=== PATIENT | female | born 1985 ===

== ENCOUNTER 2017-06-17 02:19 | Inpatient (IN) | payer OTHER ==
[2017-06-17] MEDS ORDERED: Sodium Chloride 0.9% 1,000 ML IV STA ×2 (02:28→03:15)
[2017-06-17 02:56] LABS: BASO # 0.1 K/uL (0.0-0.2); BASO % 0.8 % (0.0-2.0); EOS # 0.2 K/uL (0.0-0.7); EOS % 2.5 % (0.0-4.0); HEMOGLOBIN 12.9 g/dL (12.0-16.0); LYMPH % 21.2 % (20.0-40.0); MEAN CELL VOLUME 80.8 fl (81.0-99.0); MEAN CORPUSCULAR HEMOGLOBIN 26.8 pg (27.0-31.0); MEAN CORPUSCULAR HGB CONC 33.1 g/dL (33.0-37.0); MEAN PLATELET VOLUME 9.4 fl (7.2-11.7); MONO # 0.6 K/uL (0.0-0.8); MONO % 6.6 % (0.0-10.0); NEUT # 6.6 K/uL (1.8-7.0); NEUT % 68.9 % (50.0-75.0); NRBC % 0.2 % (0.0-0.0); RBC 4.81 Mil/uL (3.80-5.20); RED CELL DISTRIBUTION WIDTH 15.1 % (11.5-14.5); WHITE BLOOD COUNT 9.6 K/uL (4.8-10.8)
--- NOTE | 2017-06-17 02:57 | ED PDOC ---
HPI: Psych/Substance Abuse Time Seen by Provider: 06/17/17 02:26 Chief Complaint (Nursing): Psychiatric Evaluation Chief Complaint (Provider): Overdose ED Caveat: Acuity of Condition History Per: Patient History/Exam Limitations: no limitations Onset/Duration Of Symptoms: Hrs (1) Current Symptoms Are (Timing): Still Present Additional Complaint(s): 31 yo [place] female, brought in by roommates, presents to the ED status post ingesting 50 tablets of Benadryl (25mg), onset of 1 hour prior to arrival. History was obtained from the roommates because the patient is unable to answer any questions due to her clinical condition. Patient self reported the incident as a suicidal attempt to her roommates, and the patient has not vomited yet. The roommates have been unaware of any recent stressors and have not noted any changes in the patient's personality, mood, or behaviours. Of note, just prior to the incident the patient was on the phone with family, who reside oversees. Past Medical History Reviewed: Historical Data, Nursing Documentation, Vital Signs Vital Signs: Last Vital Signs Temp 98.2 F 06/17/17 02:27 Pulse 118 H 06/17/17 02:27 Resp 16 06/17/17 02:27 BP 127/84 06/17/17 02:27 Pulse Ox 100 06/17/17 02:27 - Medical History PMH: No Chronic Diseases - Surgical History Surgical History: No Surg Hx - Family History Family History: States: Unknown Family Hx - Social History Current smoker - smoking cessation education provided: No Ex-Smoker (has not smoked in the last 12 months): No Alcohol: None Drugs: Denies - Home Medications Home Medications: Ambulatory Orders Medication Instructions Recorded No Known Home Med 06/17/17 - Allergies Allergies/Adverse Reactions: Allergies Allergy/AdvReac Type Severity Reaction Status Date / Time No Known Allergies Allergy Verified 06/17/17 02:27 Review of Systems ROS Statement: Except As Marked, All Systems Reviewed And Found Negative Review Of Systems: ROS cannot be obtained secondary to pt's inabilty to answer questions. Psych: Positive for: Depression, Suicidal ideation Physical Exam - Reviewed Nursing Documentation Reviewed: Yes Vital Signs Reviewed: Yes - Physical Exam Appears: Positive for: Well Head Exam: Positive for: ATRAUMATIC, NORMAL INSPECTION, NORMOCEPHALIC Skin: Positive for: Normal Color, Warm, DRY Eye Exam: Positive for: EOMI, Normal appearance, PERRL ENT: Positive for: Normal ENT Inspection, Other (mucous membranes are dry) Neck: Positive for: Normal, Painless ROM Cardiovascular/Chest: Positive for: Regular Rate, Rhythm, Tachycardia. Negative for: Murmur Respiratory: Positive for: Normal Breath Sounds. Negative for: Respiratory Distress Gastrointestinal/Abdominal: Positive for: Normal Exam, Soft. Negative for: Tenderness Back: Positive for: Normal Inspection Extremity: Positive for: Normal ROM. Negative for: Pedal Edema, Deformity Neurologic/Psych: Positive for: Alert (patient is somnolent but not arousable) - Laboratory Results Result Diagrams: 06/17/17 02:45 06/17/17 02:45 - ECG O2 Sat by Pulse Oximetry: 100 (RA) Pulse Ox Interpretation: Normal - Critical Care Total Time (In Min): 60 (drug overdose) Medical Decision Making Medical Decision Making: Time: --02:27 Impression: --31 yo female status post benadryl overdose Plan: --ECG --Drug Screen, Urine --Poison Control Consult --Ed urine dip --urine preg --ptt --Prothrombin Time --IV fluids --Heplock Insertion --Accucheck --urinalysis Reassess --03:26 labs reviewed and reveal no clinically significant abnormalities. patient remains somnolent. poison agrees with current management plan. Nielsen catheter order. pat admitted to ICU under dr. Archibald, physician recreation professor, and hospitalist Dr. Tad Braga Attestation: Documented by Ellis Irwin acting as a scribe for Kar Gil MD. Provider Attestation: All medical record entries made by the Scribe were at my direction and personally dictated by me. I have reviewed the chart and agree that the record accurately reflects my personal performance of the history, physical exam, medical decision making, and the department course for this patient. I have also personally directed, reviewed, and agree with the discharge instructions and disposition. Disposition - Clinical Impression Clinical Impression: Diphenhydramine overdose - Patient ED Disposition Is Patient to be Admitted: Yes Discussed With : Sandip Archibald (Dr Duke Mishra) Doctor Will See Patient In The: Hospital - Disposition Disposition Time: 03:26 Condition: GUARDED
[2017-06-17 03:04] LABS: ALB/GLOB RATIO 1.1 (1.0-2.1); ALBUMIN 4.9 g/dL (3.5-5.0); ALT/SGPT 37 U/L (9-52); AST/SGOT 24 U/L (14-36); BLOOD UREA NITROGEN 15 mg/dl (7-17); CALCIUM 9.7 mg/dL (8.4-10.2); GFR AFRICAN-AMERICAN > 60; GFR NON-AFRICAN AMERICAN > 60
[2017-06-17 03:05] LABS: ACETAMINOPHEN < 10.0 ug/ml (10.0-30.0); SALICYLATE < 1.0 mg/dl
[2017-06-17 03:06] LABS: PROTHROMBIN TIME 10.9 Seconds (9.8-13.1)
--- NOTE | 2017-06-17 03:54 | CP.PCM.CON ---
History of Present Illness - History of Present Illness History of Present Illness: PMD: None Reason for Consult: Critical care management Chief Complaint: Overdose on medication The patient was seen and examined in the ED HPI: The hx was obtained from the patient and her room mates. She is a 31 years old female with no significant medical hx, is brought to the ED after she ingested approximately 50 tablets of 25mg Benadryl each, one hour prior to the Arrival in the ED. The patient stated that she has too much stress and worries and so took the tablets. She referred photophobia with blurring of vision and feeling very drowsy. No vomits nor nausea PMH: Denies PSH: Cesarian section X2 SH: No illegal drug use; No Alcohol; No cigarettes;Live with 2 room mates; has 2 children FH: States: Unknown Family Hx Allergies: NKDA Medication: Denies Review of Systems - Review of Systems Review of Systems: review of system is limited because of the patients condition Past Patient History - Past Medical History & Family History Past Medical History?: No - Past Social History Smoking Status: Unknown If Ever Smoked Chewing Tobacco Use: No Cigar Use: No Alcohol: None Drugs: Denies Home Situation {Lives}: Roommate - CARDIAC Hx Cardiac Disorders: No - PULMONARY Hx Respiratory Disorders: No - NEUROLOGICAL Hx Neurological Disorder: No - HEENT Hx HEENT Problems: No - RENAL Hx Chronic Kidney Disease: No - ENDOCRINE/METABOLIC Hx Endocrine Disorders: No - HEMATOLOGICAL/ONCOLOGICAL Hx Blood Disorders: No - INTEGUMENTARY Hx Dermatological Problems: No - MUSCULOSKELETAL/RHEUMATOLOGICAL Hx Musculoskeletal Disorders: No - GASTROINTESTINAL Hx Gastrointestinal Disorders: No - GENITOURINARY/GYNECOLOGICAL Hx Genitourinary Disorders: No - PSYCHIATRIC Hx Psychophysiologic Disorder: No Hx Substance Use: No - SURGICAL HISTORY Hx Surgeries: Yes Hx Section: Yes (X2) - ANESTHESIA Hx Anesthesia: Yes Hx Anesthesia Reactions: No Meds Allergies/Adverse Reactions: Allergies Allergy/AdvReac Type Severity Reaction Status Date / Time No Known Allergies Allergy Verified 06/17/17 02:27 - Medications Medications: Current Medications Sodium Chloride (Sodium Chloride 0.9%) 1,000 mls @ 1,000 mls/hr IV .Q1H STA Stop: 06/17/17 04:14 Physical Exam - Constitutional Appears: No Acute Distress - Head Exam Head Exam: ATRAUMATIC, NORMAL INSPECTION, NORMOCEPHALIC - Eye Exam Eye Exam: EOMI, Normal appearance Pupil Exam: NORMAL ACCOMODATION, PERRL - ENT Exam ENT Exam: Mucous Membranes Moist, Normal Exam - Neck Exam Neck exam: Positive for: Full Rom, Normal Inspection. Negative for: Lymphadenopathy, Tenderness - Respiratory Exam Respiratory Exam: Clear to Auscultation Bilateral. absent: Rales, Rhonchi, Wheezes - Cardiovascular Exam Cardiovascular Exam: REGULAR RHYTHM, RRR, +S1, +S2. absent: Gallop - GI/Abdominal Exam GI & Abdominal Exam: Normal Bowel Sounds, Soft. absent: Mass, Organomegaly, Tenderness - Rectal Exam Rectal Exam: Deferred - Extremities Exam Extremities exam: Positive for: full ROM, normal inspection. Negative for: calf tenderness, pedal edema - Back Exam Back exam: NORMAL INSPECTION. absent: CVA tenderness (L), CVA tenderness (R) - Neurological Exam Neurological exam: Alert, CN II-XII Intact, Oriented x3, Reflexes Normal - Psychiatric Exam Psychiatric exam: Normal Affect, Normal Mood - Skin Skin Exam: Dry, Intact, Normal Color, Warm Results - Vital Signs Recent Vital Signs: Last Vital Signs Temp 98.2 F 06/17/17 02:27 Pulse 118 H 06/17/17 02:27 Resp 16 06/17/17 02:27 BP 127/84 06/17/17 02:27 Pulse Ox 100 06/17/17 03:28 - Labs Result Diagrams: 06/17/17 02:45 06/17/17 02:45 Labs: Laboratory Results - last 24 hr 06/17/17 06/17/17 06/17/17 02:32 02:45 02:45 WBC RBC Hgb Hct MCV MCH MCHC RDW Plt Count MPV Neut % (Auto) Lymph % (Auto) [place] % (Auto) Eos % (Auto) Baso % (Auto) Neut # (Auto) Lymph # (Auto) [place] # (Auto) Eos # (Auto) Baso # (Auto) PT INR APTT Sodium 145 Potassium 3.8 Chloride 99 Carbon Dioxide 25 Anion Gap 25 H BUN 15 Creatinine 0.6 L Est GFR ( Amer) > 60 Est GFR (Non-Af Amer) > 60 POC Glucose (mg/dL) 101 Random Glucose 108 H Calcium 9.7 Magnesium 2.2 Total Bilirubin 0.4 AST 24 ALT 37 Alkaline Phosphatase 61 Total Protein 9.2 H Albumin 4.9 Globulin 4.3 H Albumin/Globulin Ratio 1.1 Salicylates < 1.0 Acetaminophen < 10.0 L Alcohol, Quantitative < 10 06/17/17 06/17/17 02:45 02:45 WBC 9.6 RBC 4.81 Hgb 12.9 Hct 38.9 MCV 80.8 L MCH 26.8 L MCHC 33.1 RDW 15.1 H Plt Count 310 MPV 9.4 Neut % (Auto) 68.9 Lymph % (Auto) 21.2 [place] % (Auto) 6.6 Eos % (Auto) 2.5 Baso % (Auto) 0.8 Neut # (Auto) 6.6 Lymph # (Auto) 2.0 [place] # (Auto) 0.6 Eos # (Auto) 0.2 Baso # (Auto) 0.1 PT 10.9 INR 1.0 APTT 36.0 Sodium Potassium Chloride Carbon Dioxide Anion Gap BUN Creatinine Est GFR ( Amer) Est GFR (Non-Af Amer) POC Glucose (mg/dL) Random Glucose Calcium Magnesium Total Bilirubin AST ALT Alkaline Phosphatase Total Protein Albumin Globulin Albumin/Globulin Ratio Salicylates Acetaminophen Alcohol, Quantitative Assessment & Plan - Assessment and Plan (Free Text) Assessment: #. Diphenyhydranine Overdose #. Suicide Attempt #. Dep Plan: 31 years old female with no significant medical hx, is brought to the ED after she ingested approximately 50 tablets of 25mg Benadryl each, one hour prior to the Arrival in the ED. The patient stated that she has too much stress and worries and so took the tablets. She referred photophobia with blurring of vision and feeling very drowsy. No vomits nor nausea #. Diphenyhydranine Overdose as Suicide Attempt - Consult Dr Ansari Psychiatrist - IV Fluids - Cardiac monitoring - Seizure precaution - Ativan PRN for Seizure #. Depression #. DVT prophylaxis with SCD #. Code Status :Full - - Date & Time Date: 06/17/17 Time: 03:54
[2017-06-17 04:08] LABS: URINE BACTERIA RARE (<OCC); URINE BILIRUBIN NEGATIVE (NEGATIVE); URINE BLOOD NEGATIVE (NEGATIVE); URINE CLARITY CLEAR (Clear); URINE COLOR STRAW (YELLOW); URINE GLUCOSE (UA) NEG (Normal); URINE LEUKOCYTE ESTERASE NEG Leu/uL (Negative); URINE PROTEIN NEGATIVE (NEGATIVE); URINE UROBILINOGEN 0.2-1.0 mg/dL (0.2-1.0)
[2017-06-17 04:26] LABS: BARBITURATES, UR NEGATIVE (NEGATIVE); BENZODIAZEPINES, UR NEGATIVE (NEGATIVE); OPIATES, UR NEGATIVE (NEGATIVE); PHENCYCLIDINE, UR NEGATIVE (NEGATIVE)
[2017-06-17 05:51] VITALS: BMI 24.0
[2017-06-17] MEDS: Dextrose 5%/0.45% NS 1,000 ML IV SCH ×3 (06:41→21:35)
--- NOTE | 2017-06-17 07:38 | CARD ---
APPROVED REPORT EKG Measurement Heart [id number] <Conclusion> Sinus tachycardia Possible Left atrial enlargement Borderline ECG
--- NOTE | 2017-06-17 09:47 | CP.PCM.HP ---
<Romeo Hines - Last Filed: 06/17/17 13:27> History of Present Illness - History of Present Illness History of Present Illness: CC: benadryl overdose HPI: 31 y/o woman w/ no pmh brought in by roommates, presented to the ED status post ingesting multiple tablets of Benadryl (25mg). Patient ingest tablets 1 hour prior to arrival. Patient reports increased depression and suicidal ideation. Patient reports family issues as cause of actions but did not want to discuss matter further. Patient has past history of attempt of OD in past w / pills in 2014. Patient did not receive treatment for previous attempt but was monitored by her who is a physician in [place]. Patient denies family history of psychiatric illness. Patient denies delusions, and auditory/ visual hallucinations. The patient denies headaches, chest pain, SOB, abdominal pain, nausea, vomiting, diarrhea, dysuria, or fever. PMD: None PMH: Denies meds: none Allergies: NKDA PSH: Cesarian section X2 Fam: denies history of psychiatric illness SOC: denies smoking, alcohol, and drugs; lives with 2 room mates; and 2 children live in [place] ROS: 12 points assessed and negative unless otherwise reported in HPI patient seen and examined this morning at bedside w/ Dr. Archibald Present on Admission - Present on Admission Any Indicators Present on Admission: No History of DVT/PE: No History of Uncontrolled Diabetes: No Urinary Catheter: No Decubitus Ulcer Present: No Review of Systems - Review of Systems All systems: reviewed and no additional remarkable complaints except - Constitutional Constitutional: absent: Chills, Fever, Headache - EENT Eyes: absent: Change in Vision - Cardiovascular Cardiovascular: absent: Chest Pain - Respiratory Respiratory: absent: Dyspnea - Gastrointestinal Gastrointestinal: absent: Abdominal Pain, Diarrhea, Nausea, Vomiting - Genitourinary Genitourinary: absent: Dysuria - Integumentary Integumentary: absent: Rash - Psychiatric Psychiatric: As Per HPI Past Patient History - Past Medical History & Family History Past Medical History?: No - Past Social History Alcohol: None Drugs: Denies - CARDIAC Hx Cardiac Disorders: No - PULMONARY Hx Respiratory Disorders: No - NEUROLOGICAL Hx Neurological Disorder: No - HEENT Hx HEENT Problems: No - RENAL Hx Chronic Kidney Disease: No - ENDOCRINE/METABOLIC Hx Endocrine Disorders: No - HEMATOLOGICAL/ONCOLOGICAL Hx Blood Disorders: No - INTEGUMENTARY Hx Dermatological Problems: No - MUSCULOSKELETAL/RHEUMATOLOGICAL Hx Musculoskeletal Disorders: No - GASTROINTESTINAL Hx Gastrointestinal Disorders: No - GENITOURINARY/GYNECOLOGICAL Hx Genitourinary Disorders: No - PSYCHIATRIC Hx Psychophysiologic Disorder: No Hx Substance Use: No - SURGICAL HISTORY Hx Surgeries: Yes Hx Section: Yes (X2) - ANESTHESIA Hx Anesthesia: Yes Hx Anesthesia Reactions: No Meds Allergies/Adverse Reactions: Allergies Allergy/AdvReac Type Severity Reaction Status Date / Time No Known Allergies Allergy Verified 06/17/17 02:27 Physical Exam - Constitutional Appears: Non-toxic, No Acute Distress - Head Exam Head Exam: ATRAUMATIC, NORMAL INSPECTION, NORMOCEPHALIC - Eye Exam Eye Exam: EOMI, Normal appearance, PERRL - ENT Exam ENT Exam: Mucous Membranes Moist - Respiratory Exam Respiratory Exam: Clear to Auscultation Bilateral. absent: Accessory Muscle Use , Decreased Breath Sounds, Rales, Rhonchi, Wheezes, Respiratory Distress - Cardiovascular Exam Cardiovascular Exam: REGULAR RHYTHM. absent: Tachycardia - GI/Abdominal Exam GI & Abdominal Exam: Normal Bowel Sounds, Soft. absent: Distended, Tenderness - Extremities Exam Extremities exam: Negative for: calf tenderness, pedal edema, tenderness - Neurological Exam Neurological exam: Alert, CN II-XII Intact, Oriented x3 - Skin Skin Exam: Dry, Intact, Normal Color, Warm Results - Vital Signs Recent Vital Signs: Last Vital Signs Temp 98.7 F 06/17/17 08:00 Pulse 86 06/17/17 08:00 Resp 32 H 06/17/17 08:00 BP 93/71 L 06/17/17 08:00 Pulse Ox 100 06/17/17 08:00 - Labs Result Diagrams: 06/17/17 02:45 06/17/17 02:45 Labs: Laboratory Results - last 24 hr 06/17/17 06/17/17 06/17/17 02:32 02:45 02:45 WBC RBC Hgb Hct MCV MCH MCHC RDW Plt Count MPV Neut % (Auto) Lymph % (Auto) [place] % (Auto) Eos % (Auto) Baso % (Auto) Neut # (Auto) Lymph # (Auto) [place] # (Auto) Eos # (Auto) Baso # (Auto) PT INR APTT Sodium 145 Potassium 3.8 Chloride 99 Carbon Dioxide 25 Anion Gap 25 H BUN 15 Creatinine 0.6 L Est GFR ( Amer) > 60 Est GFR (Non-Af Amer) > 60 POC Glucose (mg/dL) 101 Random Glucose 108 H Calcium 9.7 Magnesium 2.2 Total Bilirubin 0.4 AST 24 ALT 37 Alkaline Phosphatase 61 Total Protein 9.2 H Albumin 4.9 Globulin 4.3 H Albumin/Globulin Ratio 1.1 Urine Color Urine Clarity Urine pH Ur Specific [place] Urine Protein Urine Glucose (UA) Urine Ketones Urine Blood Urine Nitrate Urine Bilirubin Urine Urobilinogen Ur Leukocyte Esterase Urine RBC (Auto) Urine Bacteria Salicylates < 1.0 Urine Opiates Screen Urine Methadone Screen Acetaminophen < 10.0 L Ur Barbiturates Screen Ur Phencyclidine Scrn Ur Amphetamines Screen U Benzodiazepines Scrn U Oth Cocaine Metabols U Cannabinoids Screen Alcohol, Quantitative < 10 06/17/17 06/17/17 06/17/17 02:45 02:45 03:45 WBC 9.6 RBC 4.81 Hgb 12.9 Hct 38.9 MCV 80.8 L MCH 26.8 L MCHC 33.1 RDW 15.1 H Plt Count 310 MPV 9.4 Neut % (Auto) 68.9 Lymph % (Auto) 21.2 [place] % (Auto) 6.6 Eos % (Auto) 2.5 Baso % (Auto) 0.8 Neut # (Auto) 6.6 Lymph # (Auto) 2.0 [place] # (Auto) 0.6 Eos # (Auto) 0.2 Baso # (Auto) 0.1 PT 10.9 INR 1.0 APTT 36.0 Sodium Potassium Chloride Carbon Dioxide Anion Gap BUN Creatinine Est GFR ( Amer) Est GFR (Non-Af Amer) POC Glucose (mg/dL) Random Glucose Calcium Magnesium Total Bilirubin AST ALT Alkaline Phosphatase Total Protein Albumin Globulin Albumin/Globulin Ratio Urine Color Urine Clarity Urine pH Ur Specific [place] Urine Protein Urine Glucose (UA) Urine Ketones Urine Blood Urine Nitrate Urine Bilirubin Urine Urobilinogen Ur Leukocyte Esterase Urine RBC (Auto) Urine Bacteria Salicylates Urine Opiates Screen Negative Urine Methadone Screen Negative Acetaminophen Ur Barbiturates Screen Negative Ur Phencyclidine Scrn Negative Ur Amphetamines Screen Negative U Benzodiazepines Scrn Negative U Oth Cocaine Metabols Negative U Cannabinoids Screen Negative Alcohol, Quantitative 06/17/17 03:45 WBC RBC Hgb Hct MCV MCH MCHC RDW Plt Count MPV Neut % (Auto) Lymph % (Auto) [place] % (Auto) Eos % (Auto) Baso % (Auto) Neut # (Auto) Lymph # (Auto) [place] # (Auto) Eos # (Auto) Baso # (Auto) PT INR APTT Sodium Potassium Chloride Carbon Dioxide Anion Gap BUN Creatinine Est GFR ( Amer) Est GFR (Non-Af Amer) POC Glucose (mg/dL) Random Glucose Calcium Magnesium Total Bilirubin AST ALT Alkaline Phosphatase Total Protein Albumin Globulin Albumin/Globulin Ratio Urine Color Straw Urine Clarity Clear Urine pH 7.0 Ur Specific [place] 1.005 Urine Protein Negative Urine Glucose (UA) Neg Urine Ketones Negative Urine Blood Negative Urine Nitrate Negative Urine Bilirubin Negative Urine Urobilinogen 0.2-1.0 Ur Leukocyte Esterase Neg Urine RBC (Auto) 1 Urine Bacteria Rare Salicylates Urine Opiates Screen Urine Methadone Screen Acetaminophen Ur Barbiturates Screen Ur Phencyclidine Scrn Ur Amphetamines Screen U Benzodiazepines Scrn U Oth Cocaine Metabols U Cannabinoids Screen Alcohol, Quantitative Assessment & Plan (1) Diphenhydramine overdose Status: Acute (2) Suicidal ideation Status: Acute (3) Depression Status: Acute - Assessment and Plan (Free Text) Plan: c/w present management afebrile, non-tachycardic, normotensive poison control consulted psychiatry recommendations appreciated EKG: sinus tachycardia, possible left atrial enlargement, no acute ST elevation/ depression CBC, CMP, UA WNL drug screen negative monitor for seizure activity ativan 2 mg IV Q6h prn for seizure maintain 1:1 for suicidal ideation [facility] [place] [facility] evaluation for involuntary psychiatric admission prophylactic measures: DVT SCDs monitor for acute changes <Sandip Archibald K - Last Filed: 06/26/17 05:30> Results - Vital Signs Recent Vital Signs: Last Vital Signs Temp 98 F 06/24/17 08:42 Pulse 73 06/24/17 08:42 Resp 20 06/24/17 08:42 BP 90/58 L 06/24/17 08:42 Pulse Ox 96 06/24/17 08:42 - Labs Result Diagrams: 06/18/17 04:20 06/20/17 05:30 Assessment & Plan - Assessment and Plan (Free Text) Assessment: Patient was personally seen and examined by me in rounds with residents. Available labs and diagnostic data reviewed. Case, Patient's condition and management plan discussed with residents in rounds. Agree with resident's progress note. Plan: As ordered.
--- NOTE | 2017-06-17 09:56 | CP.PCM.CON ---
History of Present Illness - History of Present Illness History of Present Illness: Psychiatry consult note CC: Suicide attempt HPI: 31 y/o woman w/ history of suicide attempt by OD on pills in 2014, presents s/p suicide attempt by ingestion of 3/4 bottle of benadryl (states she does not know the exact quantity). She report that she has been feeling depressed and attempted suicide as a result of "personal issues" which she did not want to disclose to designer writer. She denies current SI. She is not agreeable to psychiatric treatment or hospitalizations. She denied AH/VH/paranoia/ delusions. PPHx: H/o 2014 suicide attempt; did not receive treatment after this but was monitored by her who is a physician; no h/o psychiatric admissions or medications PMD: None PMH: Denies Meds: none Allergies: NKDA PSH: Cesarian section X2 Fam: Denies family h/o mental illness SOC: Denies smoking, alcohol, and drugs; lives with 2 roommates; has 2 children ; Her and children live in [place]. She is employed as a managing consultant. MSE: A + O x 3, calm, superficially cooperative with interview but is guarded with information, good eye contact, speech soft and accented; mood "depressed", affect- constricted, denies AH/VH/paranoia/delusions, +Recent suicide attempt, denies current SI/HI; poor I/J; poor impulse control Impression: 31 yo female presents s/p suicide attempt, needs acute inpatient psychiatric admission but is not agreeable at this time. She is guarded with designer writer and has poor social support as her entire family is not in this country. Patient is a high risk of danger to self and needs to be screened for involuntary psychiatric admission. -Screen by [facility] when patient is medically stable -1:1 for suicide precautions Past Patient History - Past Medical History & Family History Past Medical History?: No - Past Social History Alcohol: None Drugs: Denies - CARDIAC Hx Cardiac Disorders: No - PULMONARY Hx Respiratory Disorders: No - NEUROLOGICAL Hx Neurological Disorder: No - HEENT Hx HEENT Problems: No - RENAL Hx Chronic Kidney Disease: No - ENDOCRINE/METABOLIC Hx Endocrine Disorders: No - HEMATOLOGICAL/ONCOLOGICAL Hx Blood Disorders: No - INTEGUMENTARY Hx Dermatological Problems: No - MUSCULOSKELETAL/RHEUMATOLOGICAL Hx Musculoskeletal Disorders: No - GASTROINTESTINAL Hx Gastrointestinal Disorders: No - GENITOURINARY/GYNECOLOGICAL Hx Genitourinary Disorders: No - PSYCHIATRIC Hx Psychophysiologic Disorder: No Hx Substance Use: No - SURGICAL HISTORY Hx Surgeries: Yes Hx Section: Yes (X2) - ANESTHESIA Hx Anesthesia: Yes Hx Anesthesia Reactions: No Meds Allergies/Adverse Reactions: Allergies Allergy/AdvReac Type Severity Reaction Status Date / Time No Known Allergies Allergy Verified 06/17/17 02:27 - Medications Medications: Current Medications Dextrose/Sodium Chloride (Dextrose 5%/0.45% Ns 1000 Ml) 1,000 mls @ 200 mls/hr IV .Q5H JOSEPH Stop: 06/18/17 04:35 Last Admin: 06/17/17 06:41 Dose: 200 mls/hr Lorazepam (Ativan) 2 mg IVP Q6 PRN PRN Reason: Seizure activity Results - Vital Signs Recent Vital Signs: Last Vital Signs Temp 98.7 F 06/17/17 08:00 Pulse 86 06/17/17 08:00 Resp 32 H 06/17/17 08:00 BP 93/71 L 06/17/17 08:00 Pulse Ox 100 06/17/17 08:00 - Labs Result Diagrams: 06/17/17 02:45 06/17/17 02:45 Labs: Laboratory Results - last 24 hr 06/17/17 06/17/17 06/17/17 02:32 02:45 02:45 WBC RBC Hgb Hct MCV MCH MCHC RDW Plt Count MPV Neut % (Auto) Lymph % (Auto) [place] % (Auto) Eos % (Auto) Baso % (Auto) Neut # (Auto) Lymph # (Auto) [place] # (Auto) Eos # (Auto) Baso # (Auto) PT INR APTT Sodium 145 Potassium 3.8 Chloride 99 Carbon Dioxide 25 Anion Gap 25 H BUN 15 Creatinine 0.6 L Est GFR ( Amer) > 60 Est GFR (Non-Af Amer) > 60 POC Glucose (mg/dL) 101 Random Glucose 108 H Calcium 9.7 Magnesium 2.2 Total Bilirubin 0.4 AST 24 ALT 37 Alkaline Phosphatase 61 Total Protein 9.2 H Albumin 4.9 Globulin 4.3 H Albumin/Globulin Ratio 1.1 Urine Color Urine Clarity Urine pH Ur Specific [place] Urine Protein Urine Glucose (UA) Urine Ketones Urine Blood Urine Nitrate Urine Bilirubin Urine Urobilinogen Ur Leukocyte Esterase Urine RBC (Auto) Urine Bacteria Salicylates < 1.0 Urine Opiates Screen Urine Methadone Screen Acetaminophen < 10.0 L Ur Barbiturates Screen Ur Phencyclidine Scrn Ur Amphetamines Screen U Benzodiazepines Scrn U Oth Cocaine Metabols U Cannabinoids Screen Alcohol, Quantitative < 10 06/17/17 06/17/17 06/17/17 02:45 02:45 03:45 WBC 9.6 RBC 4.81 Hgb 12.9 Hct 38.9 MCV 80.8 L MCH 26.8 L MCHC 33.1 RDW 15.1 H Plt Count 310 MPV 9.4 Neut % (Auto) 68.9 Lymph % (Auto) 21.2 [place] % (Auto) 6.6 Eos % (Auto) 2.5 Baso % (Auto) 0.8 Neut # (Auto) 6.6 Lymph # (Auto) 2.0 [place] # (Auto) 0.6 Eos # (Auto) 0.2 Baso # (Auto) 0.1 PT 10.9 INR 1.0 APTT 36.0 Sodium Potassium Chloride Carbon Dioxide Anion Gap BUN Creatinine Est GFR ( Amer) Est GFR (Non-Af Amer) POC Glucose (mg/dL) Random Glucose Calcium Magnesium Total Bilirubin AST ALT Alkaline Phosphatase Total Protein Albumin Globulin Albumin/Globulin Ratio Urine Color Urine Clarity Urine pH Ur Specific [place] Urine Protein Urine Glucose (UA) Urine Ketones Urine Blood Urine Nitrate Urine Bilirubin Urine Urobilinogen Ur Leukocyte Esterase Urine RBC (Auto) Urine Bacteria Salicylates Urine Opiates Screen Negative Urine Methadone Screen Negative Acetaminophen Ur Barbiturates Screen Negative Ur Phencyclidine Scrn Negative Ur Amphetamines Screen Negative U Benzodiazepines Scrn Negative U Oth Cocaine Metabols Negative U Cannabinoids Screen Negative Alcohol, Quantitative 06/17/17 03:45 WBC RBC Hgb Hct MCV MCH MCHC RDW Plt Count MPV Neut % (Auto) Lymph % (Auto) [place] % (Auto) Eos % (Auto) Baso % (Auto) Neut # (Auto) Lymph # (Auto) [place] # (Auto) Eos # (Auto) Baso # (Auto) PT INR APTT Sodium Potassium Chloride Carbon Dioxide Anion Gap BUN Creatinine Est GFR ( Amer) Est GFR (Non-Af Amer) POC Glucose (mg/dL) Random Glucose Calcium Magnesium Total Bilirubin AST ALT Alkaline Phosphatase Total Protein Albumin Globulin Albumin/Globulin Ratio Urine Color Straw Urine Clarity Clear Urine pH 7.0 Ur Specific [place] 1.005 Urine Protein Negative Urine Glucose (UA) Neg Urine Ketones Negative Urine Blood Negative Urine Nitrate Negative Urine Bilirubin Negative Urine Urobilinogen 0.2-1.0 Ur Leukocyte Esterase Neg Urine RBC (Auto) 1 Urine Bacteria Rare Salicylates Urine Opiates Screen Urine Methadone Screen Acetaminophen Ur Barbiturates Screen Ur Phencyclidine Scrn Ur Amphetamines Screen U Benzodiazepines Scrn U Oth Cocaine Metabols U Cannabinoids Screen Alcohol, Quantitative
[2017-06-18] MEDS: Dextrose 5%/0.45% NS 1,000 ML IV SCH (03:43)
[2017-06-18 05:55] LABS: MEAN CELL VOLUME 81.8 fl (81.0-99.0); MEAN CORPUSCULAR HEMOGLOBIN 26.8 pg (27.0-31.0); MEAN CORPUSCULAR HGB CONC 32.8 g/dL (33.0-37.0); RBC 4.08 Mil/uL (3.80-5.20); RED CELL DISTRIBUTION WIDTH 15.1 % (11.5-14.5)
[2017-06-18 06:20] LABS: BLOOD UREA NITROGEN 7 mg/dl (7-17); CALCIUM 8.4 mg/dL (8.4-10.2); GFR AFRICAN-AMERICAN > 60; GFR NON-AFRICAN AMERICAN > 60
--- NOTE | 2017-06-18 08:43 | CP.PCM.PN ---
<Romeo Hines - Last Filed: 06/18/17 08:39> Subjective - Date & Time of Evaluation Date of Evaluation: 06/18/17 Time of Evaluation: 07:50 - Subjective Subjective: Patient seen and examined at bedside this morning w/ Dr. Archibald. There are no acute events overnight, NAD. Patient is laying in bed comfortably. Patient medically stable. Patient seen by psychiatry. Patient declining voluntary psych admission. Awaiting for [facility] [place] for involuntary psych due to high risk of self-harm. Otherwise patient has no complaints. Objective - Vital Signs/Intake and Output Vital Signs (last 24 hours): Temp Pulse Resp BP Pulse Ox 98.6 F 62 16 100/60 100 06/18/17 00:00 06/18/17 07:47 06/18/17 07:47 06/18/17 07:47 06/18/17 07:47 Intake and Output: 06/18/17 06/18/17 06:59 18:59 Output Total 1000 Balance -1000 - Medications Medications: Current Medications Lorazepam (Ativan) 2 mg IVP Q6 PRN PRN Reason: Seizure activity - Labs Labs: 06/18/17 04:20 06/18/17 04:20 PT 10.9 Seconds (9.8-13.1) 06/17/17 02:45 INR 1.0 (0.9-1.2) 06/17/17 02:45 APTT 36.0 Seconds (25.6-37.1) 06/17/17 02:45 - Constitutional Appears: Non-toxic, No Acute Distress - Head Exam Head Exam: ATRAUMATIC, NORMAL INSPECTION, NORMOCEPHALIC - Eye Exam Eye Exam: EOMI, Normal appearance, PERRL - ENT Exam ENT Exam: Mucous Membranes Moist - Neck Exam Neck Exam: Full ROM. absent: Tenderness - Respiratory Exam Respiratory Exam: Clear to Ausculation Bilateral. absent: Accessory Muscle Use , Decreased Breath Sounds, Rales, Rhonchi, Wheezes, Respiratory Distress - Cardiovascular Exam Cardiovascular Exam: REGULAR RHYTHM. absent: Tachycardia - GI/Abdominal Exam GI & Abdominal Exam: Soft, Normal Bowel Sounds. absent: Distended, Tenderness - Extremities Exam Extremities Exam: absent: Calf Tenderness, Pedal Edema, Tenderness - Neurological Exam Neurological Exam: Alert, Awake, Oriented x3 - Skin Skin Exam: Dry, Intact, Normal Color, Warm Assessment and Plan (1) Diphenhydramine overdose Status: Acute (2) Suicidal ideation Status: Acute (3) Depression Status: Acute - Assessment and Plan (Free Text) Plan: c/w present management afebrile, non-tachycardic, normotensive poison control consulted psychiatry recommendations appreciated EKG: sinus tachycardia, possible left atrial enlargement, no acute ST elevation/ depression CBC, CMP, UA WNL drug screen negative monitor for seizure activity ativan 2 mg IV Q6h prn for seizure maintain 1:1 for suicidal ideation [facility] evaluation for involuntary psychiatric admission prophylactic measures: DVT SCDs monitor for acute changes medically stable for transfer to [facility] while awaiting [facility] evaluation <Archibald,Sandip K - Last Filed: 06/25/17 14:08> Objective - Vital Signs/Intake and Output Vital Signs (last 24 hours): Temp Pulse Resp BP Pulse Ox 98 F 73 20 90/58 L 96 06/24/17 08:42 06/24/17 08:42 06/24/17 08:42 06/24/17 08:42 06/24/17 08:42 - Labs Labs: 06/18/17 04:20 06/20/17 05:30 PT 10.9 Seconds (9.8-13.1) 06/17/17 02:45 INR 1.0 (0.9-1.2) 06/17/17 02:45 APTT 36.0 Seconds (25.6-37.1) 06/17/17 02:45 Assessment and Plan - Assessment and Plan (Free Text) Assessment: Patient was personally seen and examined by me in rounds with residents. Available labs and diagnostic data reviewed. Case, Patient's condition and management plan discussed with residents in rounds. Agree with resident's progress note. Plan: As ordered.
[2017-06-19] MEDS ORDERED: Potassium Chloride 20 mEq ER Tab PO ONE (07:15)
--- NOTE | 2017-06-19 08:14 | CP.PCM.PN ---
<Romeo Hines - Last Filed: 06/19/17 08:12> Subjective - Date & Time of Evaluation Date of Evaluation: 06/19/17 Time of Evaluation: 07:40 - Subjective Subjective: Patient seen and examined at bedside this morning w/ Dr. Archibald. There are no acute events overnight, NAD. Patient is laying in bed comfortably. Patient medically stable. Awaiting for transfer to [facility]. Patient feeling better. Patient has no complaints. Objective - Vital Signs/Intake and Output Vital Signs (last 24 hours): Temp Pulse Resp BP Pulse Ox 98.4 F 86 20 108/60 97 06/18/17 20:00 06/18/17 20:00 06/18/17 20:00 06/18/17 20:00 06/18/17 20:00 - Medications Medications: Current Medications Lorazepam (Ativan) 2 mg IVP Q6 PRN PRN Reason: Seizure activity - Labs Labs: 06/18/17 04:20 06/18/17 04:20 PT 10.9 Seconds (9.8-13.1) 06/17/17 02:45 INR 1.0 (0.9-1.2) 06/17/17 02:45 APTT 36.0 Seconds (25.6-37.1) 06/17/17 02:45 - Constitutional Appears: Non-toxic, No Acute Distress - Head Exam Head Exam: ATRAUMATIC, NORMAL INSPECTION, NORMOCEPHALIC - Eye Exam Eye Exam: Normal appearance - ENT Exam ENT Exam: Mucous Membranes Moist - Neck Exam Neck Exam: Full ROM. absent: Tenderness - Respiratory Exam Respiratory Exam: Clear to Ausculation Bilateral. absent: Accessory Muscle Use , Decreased Breath Sounds, Rales, Rhonchi, Wheezes, Respiratory Distress - Cardiovascular Exam Cardiovascular Exam: REGULAR RHYTHM. absent: Tachycardia - GI/Abdominal Exam GI & Abdominal Exam: Soft, Normal Bowel Sounds. absent: Distended, Tenderness - Extremities Exam Extremities Exam: absent: Calf Tenderness, Pedal Edema, Tenderness - Neurological Exam Neurological Exam: Alert, Awake, Oriented x3 - Skin Skin Exam: Dry, Intact, Normal Color, Warm Assessment and Plan (1) Diphenhydramine overdose Status: Acute (2) Suicidal ideation Status: Acute (3) Depression Status: Acute - Assessment and Plan (Free Text) Plan: c/w present management afebrile, non-tachycardic, normotensive poison control consulted psychiatry recommendations appreciated EKG: sinus tachycardia, possible left atrial enlargement, no acute ST elevation/ depression CBC, CMP, UA WNL drug screen negative monitor for seizure activity ativan 2 mg IV Q6h prn for seizure maintain 1:1 for suicidal ideation accepted and awaiting transfer to [facility] prophylactic measures: DVT SCDs monitor for acute changes <Archibald,Sandip K - Last Filed: 06/19/17 14:31> Objective - Vital Signs/Intake and Output Vital Signs (last 24 hours): Temp Pulse Resp BP Pulse Ox 98.1 F 64 18 110/60 99 06/19/17 08:00 06/19/17 10:57 06/19/17 10:57 06/19/17 10:57 06/19/17 10:57 - Medications Medications: Current Medications Lorazepam (Ativan) 2 mg IVP Q6 PRN PRN Reason: Seizure activity - Labs Labs: 06/18/17 04:20 06/18/17 04:20 PT 10.9 Seconds (9.8-13.1) 06/17/17 02:45 INR 1.0 (0.9-1.2) 06/17/17 02:45 APTT 36.0 Seconds (25.6-37.1) 06/17/17 02:45 Assessment and Plan - Assessment and Plan (Free Text) Assessment: Pt was seen and examined in rounds with residents, all dignostic data were reviwed. Case and management and plan was discussed with resident. Agree with residents note and plan. Plan: Pt was seen and examined in rounds with residents, all diagnostic data were reviewed. Case and management and plan was discussed with resident. Agree with residents note and plan.
[2017-06-20 07:31] LABS: ALB/GLOB RATIO 1.1 (1.0-2.1); ALBUMIN 4.1 g/dL (3.5-5.0); ALT/SGPT 31 U/L (9-52); AST/SGOT 14 U/L (14-36); BLOOD UREA NITROGEN 19 mg/dl (7-17); CALCIUM 9.3 mg/dL (8.4-10.2); GFR AFRICAN-AMERICAN > 60; GFR NON-AFRICAN AMERICAN > 60
--- NOTE | 2017-06-20 08:48 | CP.PCM.PN ---
<Romeo Hines - Last Filed: 06/20/17 08:46> Subjective - Date & Time of Evaluation Date of Evaluation: 06/20/17 Time of Evaluation: 08:30 - Subjective Subjective: Patient seen and examined at bedside this morning w/ Dr. Archibald. There are no acute events overnight, NAD. Patient is laying in bed comfortably. Patient medically stable. A[place]ing [place] [facility] Patient feeling better. Patient has no complaints. Objective - Vital Signs/Intake and Output Vital Signs (last 24 hours): Temp Pulse Resp BP Pulse Ox 97.9 F 80 18 100/66 100 06/19/17 23:57 06/19/17 23:57 06/19/17 23:57 06/19/17 23:57 06/19/17 23:57 - Labs Labs: 06/18/17 04:20 06/20/17 05:30 PT 10.9 Seconds (9.8-13.1) 06/17/17 02:45 INR 1.0 (0.9-1.2) 06/17/17 02:45 APTT 36.0 Seconds (25.6-37.1) 06/17/17 02:45 - Constitutional Appears: Non-toxic, No Acute Distress - Head Exam Head Exam: ATRAUMATIC, NORMAL INSPECTION, NORMOCEPHALIC - Eye Exam Eye Exam: Normal appearance - ENT Exam ENT Exam: Mucous Membranes Moist - Neck Exam Neck Exam: Full ROM. absent: Tenderness - Respiratory Exam Respiratory Exam: Clear to Ausculation Bilateral. absent: Accessory Muscle Use , Decreased Breath Sounds, Rales, Rhonchi, Wheezes, Respiratory Distress - Cardiovascular Exam Cardiovascular Exam: REGULAR RHYTHM. absent: Tachycardia - GI/Abdominal Exam GI & Abdominal Exam: Soft, Normal Bowel Sounds. absent: Distended, Tenderness - Extremities Exam Extremities Exam: absent: Calf Tenderness, Pedal Edema, Tenderness - Neurological Exam Neurological Exam: Alert, Awake, Oriented x3 - Skin Skin Exam: Dry, Intact, Normal Color, Warm Assessment and Plan (1) Diphenhydramine overdose Status: Acute (2) Suicidal ideation Status: Acute (3) Depression Status: Acute - Assessment and Plan (Free Text) Plan: c/w present management afebrile, non-tachycardic, normotensive poison control consulted psychiatry recommendations appreciated CBC, CMP, UA WNL drug screen negative maintain 1:1 for suicidal ideation accepted and awaiting transfer [place] [facility] prophylactic measures: DVT SCDs monitor for acute changes <Archibald,Sandip K - Last Filed: 06/24/17 12:25> Objective - Vital Signs/Intake and Output Vital Signs (last 24 hours): Temp Pulse Resp BP Pulse Ox 98 F 73 20 90/58 L 96 06/24/17 08:42 06/24/17 08:42 06/24/17 08:42 06/24/17 08:42 06/24/17 08:42 - Labs Labs: 06/18/17 04:20 06/20/17 05:30 PT 10.9 Seconds (9.8-13.1) 06/17/17 02:45 INR 1.0 (0.9-1.2) 06/17/17 02:45 APTT 36.0 Seconds (25.6-37.1) 06/17/17 02:45 Assessment and Plan - Assessment and Plan (Free Text) Assessment: Patient was personally seen and examined by me in rounds with residents. Available labs and diagnostic data reviewed. Case, Patient's condition and management plan discussed with residents in rounds. Agree with resident's progress note. Plan: As ordered.
--- NOTE | 2017-06-20 11:44 | RAD ---
HISTORY: Admission COMPARISON: No prior. TECHNIQUE: Chest PA and lateral FINDINGS: LUNGS: No active pulmonary disease. PLEURA: No significant pleural effusion identified. No pneumothorax apparent. CARDIOVASCULAR: Normal. OSSEOUS STRUCTURES: No significant abnormalities. VISUALIZED UPPER ABDOMEN: Normal. OTHER FINDINGS: None. IMPRESSION: No acute cardiopulmonary disease appreciated.
--- NOTE | 2017-06-21 11:47 | CP.PCM.CON ---
History of Present Illness - History of Present Illness History of Present Illness: This is a 31 yr old female with h/o depression admitted for suicidal attempt with overdose on pills and was sen by dr leeanna castorena referred to [facility] for invoulntary admission and accepted for adsmission and consult requested for folow up today as still no bed available in [facility].pt has still remained depressed with poor insight regarding her depression and suicidal ideation and need inpt hospitalization .Pt feels that there is nothing wrong with her and she does not want inpt psych admission and wants to go home. Past Patient History - Past Medical History & Family History Past Medical History?: No - Past Social History Alcohol: None Drugs: Denies - CARDIAC Hx Cardiac Disorders: No - PULMONARY Hx Respiratory Disorders: No - NEUROLOGICAL Hx Neurological Disorder: No - HEENT Hx HEENT Problems: No - RENAL Hx Chronic Kidney Disease: No - ENDOCRINE/METABOLIC Hx Endocrine Disorders: No - HEMATOLOGICAL/ONCOLOGICAL Hx Blood Disorders: No - INTEGUMENTARY Hx Dermatological Problems: No - MUSCULOSKELETAL/RHEUMATOLOGICAL Hx Musculoskeletal Disorders: No - GASTROINTESTINAL Hx Gastrointestinal Disorders: No - GENITOURINARY/GYNECOLOGICAL Hx Genitourinary Disorders: No - PSYCHIATRIC Hx Psychophysiologic Disorder: No Hx Substance Use: No - SURGICAL HISTORY Hx Surgeries: Yes Hx Section: Yes (X2) - ANESTHESIA Hx Anesthesia: Yes Hx Anesthesia Reactions: No Meds Allergies/Adverse Reactions: Allergies Allergy/AdvReac Type Severity Reaction Status Date / Time No Known Allergies Allergy Verified 06/17/17 02:27 Physical Exam - Psychiatric Exam Psychiatric exam: Anxious, Depressed, Flat Affect, Suicidal Ideation Additional comments: pt is alert,oriented with intact cognition but still depressed with suicidal ideation.no psychosis.pt has poor insight ,poor affect and poor judgement Results - Vital Signs Recent Vital Signs: Last Vital Signs Temp 98 F 06/21/17 08:20 Pulse 76 06/21/17 08:20 Resp 18 06/21/17 08:20 BP 92/58 L 06/21/17 08:20 Pulse Ox 100 06/21/17 08:20 - Labs Result Diagrams: 06/18/17 04:20 06/20/17 05:30 Assessment & Plan - Assessment and Plan (Free Text) Assessment: Major depression , severe without psychosis Plan: Will continue 1:1 observation and pt has been acccepted by [facility] for involuntary admission as pt continues to refuse voluntary admission. Will transfer pt to [facility] when bed is available.
--- NOTE | 2017-06-22 09:03 | PN ---
DATE: 06/22/2017 SUBJECTIVE: The patient is seen and examined. Interim events noted. Consults noted and appreciated. Psychiatry followup and intervention noted and appreciated. The patient remains in regular medical floor with one-to-one observation. The patient feels okay. Denies any specific medical complaints. No chest pain. No shortness of breath. PHYSICAL EXAMINATION: GENERAL: The patient is in no acute distress. VITAL SIGNS: Stable. HEART: S1 and S2, normal and regular. LUNGS: Good bilateral air exchange. ABDOMEN: Soft and nontender. EXTREMITIES: No edema. No calf swelling. No tenderness. No ischemia. CENTRAL NERVOUS SYSTEM: Exam is essentially unchanged. DIAGNOSTIC DATA: Available diagnostic data reviewed. Chest x-ray is clear. ASSESSMENT AND PLAN: Overall, the patient's general medical condition is stable. Plan as ordered. Sandip Archibald MD
--- NOTE | 2017-06-22 21:59 | CP.PCM.PN ---
Subjective - Date & Time of Evaluation Date of Evaluation: 06/21/17 Time of Evaluation: 11:45 - Subjective Subjective: Patient remains stable Surrounded by family. Feels a lot better. Awaiting for [facility] transfer Objective - Vital Signs/Intake and Output Vital Signs (last 24 hours): Temp Pulse Resp BP Pulse Ox 98.8 F 93 H 18 95/61 L 96 06/22/17 16:38 06/22/17 16:38 06/22/17 16:38 06/22/17 16:38 06/22/17 16:38 - Labs Labs: 06/18/17 04:20 06/20/17 05:30 PT 10.9 Seconds (9.8-13.1) 06/17/17 02:45 INR 1.0 (0.9-1.2) 06/17/17 02:45 APTT 36.0 Seconds (25.6-37.1) 06/17/17 02:45 - Head Exam Head Exam: NORMAL INSPECTION - Eye Exam Eye Exam: Normal appearance - ENT Exam ENT Exam: Mucous Membranes Moist - Respiratory Exam Respiratory Exam: Clear to Ausculation Bilateral - GI/Abdominal Exam GI & Abdominal Exam: Normal Bowel Sounds - Neurological Exam Neurological Exam: Awake, Oriented x3 Assessment and Plan (1) Depression Status: Acute (2) Diphenhydramine overdose Status: Acute (3) Suicidal ideation Status: Acute - Assessment and Plan (Free Text) Plan: Con tmeds Cont tx Follow up with [facility] availability ofbeds.
--- NOTE | 2017-06-23 10:57 | PN ---
DATE: 06/23/2017 SUBJECTIVE: The patient is seen and examined. Interim events noted. The patient remains in one-to-one observation in medical floor [facility]. Feels better. Denies any specific medical complaints. No chest pain or shortness of breath. PHYSICAL EXAMINATION: GENERAL: The patient is in no acute distress. VITAL SIGNS: Stable. HEART: S1 and S2, normal and regular. LUNGS: Good bilateral air exchange. ABDOMEN: Soft and nontender. EXTREMITIES: No edema. No calf swelling. No tenderness. No ischemia. [employer]: Essentially unchanged. DIAGNOSTIC DATA: Available diagnostic data reviewed. PLAN: Overall, the patient's general medical condition is stable. Awaiting psychiatric transfer. Plan as ordered. Case and plan discussed with the patient. The patient wants to do some work from , which was okay. Sandip Archibald MD
[2017-06-24 05:12] VITALS: TEMP 98
--- NOTE | 2017-06-24 07:54 | CP.PCM.PN ---
<Romeo Hines - Last Filed: 06/24/17 12:24> Subjective - Date & Time of Evaluation Date of Evaluation: 06/24/17 Time of Evaluation: 07:20 - Subjective Subjective: Patient seen and examined at bedside this morning w/ Dr. Archibald. There are no acute events overnight, NAD. Patient is laying in bed comfortably. Patient medically stable. [place] [facility] [place] feeling better. Patient has no complaints. Objective - Vital Signs/Intake and Output Vital Signs (last 24 hours): Temp Pulse Resp BP Pulse Ox 98 F 80 18 92/52 L 99 06/24/17 01:00 06/24/17 01:00 06/24/17 01:00 06/24/17 01:00 06/24/17 01:00 - Labs Labs: 06/18/17 04:20 06/20/17 05:30 PT 10.9 Seconds (9.8-13.1) 06/17/17 02:45 INR 1.0 (0.9-1.2) 06/17/17 02:45 APTT 36.0 Seconds (25.6-37.1) 06/17/17 02:45 - Constitutional Appears: Non-toxic, No Acute Distress - Head Exam Head Exam: ATRAUMATIC, NORMAL INSPECTION, NORMOCEPHALIC - Eye Exam Eye Exam: Normal appearance - ENT Exam ENT Exam: Mucous Membranes Moist - Neck Exam Neck Exam: Full ROM. absent: Tenderness - Respiratory Exam Respiratory Exam: Clear to Ausculation Bilateral. absent: Accessory Muscle Use , Decreased Breath Sounds, Rales, Rhonchi, Wheezes, Respiratory Distress - Cardiovascular Exam Cardiovascular Exam: REGULAR RHYTHM. absent: Tachycardia - GI/Abdominal Exam GI & Abdominal Exam: Soft, Normal Bowel Sounds. absent: Distended, Tenderness - Extremities Exam Extremities Exam: absent: Calf Tenderness, Pedal Edema, Tenderness - Neurological Exam Neurological Exam: Alert, Awake, Oriented x3 - Skin Skin Exam: Dry, Intact, Normal Color, Warm Assessment and Plan (1) Diphenhydramine overdose Status: Acute (2) Suicidal ideation Status: Acute (3) Depression Status: Acute - Assessment and Plan (Free Text) Plan: c/w present management afebrile, non-tachycardic, normotensive psychiatry recommendations appreciated maintain 1:1 for suicidal ideation patient now agrees to voluntary psychiatric admission prophylactic measures: DVT SCDs monitor for acute changes <Archibald,Sandip K - Last Filed: 06/25/17 13:30> Objective - Vital Signs/Intake and Output Vital Signs (last 24 hours): Temp Pulse Resp BP Pulse Ox 98 F 73 20 90/58 L 96 06/24/17 08:42 06/24/17 08:42 06/24/17 08:42 06/24/17 08:42 06/24/17 08:42 - Labs Labs: 06/18/17 04:20 06/20/17 05:30 PT 10.9 Seconds (9.8-13.1) 06/17/17 02:45 INR 1.0 (0.9-1.2) 06/17/17 02:45 APTT 36.0 Seconds (25.6-37.1) 06/17/17 02:45 Assessment and Plan - Assessment and Plan (Free Text) Assessment: Patient was personally seen and examined by me in rounds with residents. Available labs and diagnostic data reviewed. Case, Patient's condition and management plan discussed with residents in rounds. Agree with resident's progress note. Plan: As ordered.
[2017-06-24 08:42] VITALS: BP 90/58; PULSE 73; RESP 20; O2SAT 96
--- NOTE | 2017-06-24 10:35 | CP.PCM.PCO ---
Physician Communication Note - Physician Communication Note Physician Communication Note: Patient is agreeable for voluntary inpatient psychiatric admission
--- NOTE | 2017-06-24 13:38 | CP.PCM.DIS ---
Provider - Provider Date of Admission: 06/17/17 03:19 Attending physician: Sandip Archibald MD Time Spent in preparation of Discharge (in minutes): 15 Diagnosis - Discharge Diagnosis (1) Diphenhydramine overdose Status: Acute (2) Suicidal ideation Status: Acute (3) Depression Status: Acute Hospital Course - Lab Results Lab Results: Micro Results 06/19/17 18:00 Naris MRSA Culture (Admit) - Final MRSA NOT DETECTED 06/17/17 10:50 Naris MRSA Culture (Admit) - Final MRSA NOT DETECTED 06/17/17 03:45 Urine,Catheterized Urine Culture - Final No Growth (<1,000 CFU/ML) Most Recent Lab Values WBC 7.0 K/uL (4.8-10.8) 06/18/17 04:20 RBC 4.08 Mil/uL (3.80-5.20) 06/18/17 04:20 Hgb 11.0 g/dL (12.0-16.0) L 06/18/17 04:20 Hct 33.4 % (34.0-47.0) L 06/18/17 04:20 MCV 81.8 fl (81.0-99.0) 06/18/17 04:20 MCH 26.8 pg (27.0-31.0) L 06/18/17 04:20 MCHC 32.8 g/dL (33.0-37.0) L 06/18/17 04:20 RDW 15.1 % (11.5-14.5) H 06/18/17 04:20 Plt Count 267 K/uL (130-400) 06/18/17 04:20 MPV 9.4 fl (7.2-11.7) 06/17/17 02:45 Neut % (Auto) 68.9 % (50.0-75.0) 06/17/17 02:45 Lymph % (Auto) 21.2 % (20.0-40.0) 06/17/17 02:45 [place] % (Auto) 6.6 % (0.0-10.0) 06/17/17 02:45 Eos % (Auto) 2.5 % (0.0-4.0) 06/17/17 02:45 Baso % (Auto) 0.8 % (0.0-2.0) 06/17/17 02:45 Neut # (Auto) 6.6 K/uL (1.8-7.0) 06/17/17 02:45 Lymph # (Auto) 2.0 K/uL (1.0-4.3) 06/17/17 02:45 [place] # (Auto) 0.6 K/uL (0.0-0.8) 06/17/17 02:45 Eos # (Auto) 0.2 K/uL (0.0-0.7) 06/17/17 02:45 Baso # (Auto) 0.1 K/uL (0.0-0.2) 06/17/17 02:45 PT 10.9 Seconds (9.8-13.1) 06/17/17 02:45 INR 1.0 (0.9-1.2) 06/17/17 02:45 APTT 36.0 Seconds (25.6-37.1) 06/17/17 02:45 Sodium 141 mmol/l (132-148) 06/20/17 05:30 Potassium 3.8 MMOL/L (3.6-5.0) 06/20/17 05:30 Chloride 99 mmol/L (98-107) 06/20/17 05:30 Carbon Dioxide 26 mmol/L (22-30) 06/20/17 05:30 Anion Gap 20 (10-20) 06/20/17 05:30 BUN 19 mg/dl (7-17) H 06/20/17 05:30 Creatinine 0.7 mg/dl (0.7-1.2) 06/20/17 05:30 Est GFR ( Amer) > 60 06/20/17 05:30 Est GFR (Non-Af Amer) > 60 06/20/17 05:30 POC Glucose (mg/dL) 101 mg/dL (65-110) 06/17/17 02:32 Random Glucose 99 mg/dL (65-105) 06/20/17 05:30 Calcium 9.3 mg/dL (8.4-10.2) 06/20/17 05:30 Magnesium 2.2 MG/DL (1.6-2.3) 06/17/17 02:45 Total Bilirubin 0.8 mg/dl (0.2-1.3) 06/20/17 05:30 AST 14 U/L (14-36) D 06/20/17 05:30 ALT 31 U/L (9-52) 06/20/17 05:30 Alkaline Phosphatase 61 U/L (38-126) 06/20/17 05:30 Total Protein 7.9 G/DL (6.3-8.2) 06/20/17 05:30 Albumin 4.1 g/dL (3.5-5.0) 06/20/17 05:30 Globulin 3.8 gm/dL (2.2-3.9) 06/20/17 05:30 Albumin/Globulin Ratio 1.1 (1.0-2.1) 06/20/17 05:30 Urine Color Straw (YELLOW) 06/17/17 03:45 Urine Clarity Clear (Clear) 06/17/17 03:45 Urine pH 7.0 (5.0-8.0) 06/17/17 03:45 Ur Specific [place] 1.005 (1.003-1.030) 06/17/17 03:45 Urine Protein Negative mg/dL (NEGATIVE) 06/17/17 03:45 Urine Glucose (UA) Neg mg/dL (Normal) 06/17/17 03:45 Urine Ketones Negative mg/dL (NEGATIVE) 06/17/17 03:45 Urine Blood Negative (NEGATIVE) 06/17/17 03:45 Urine Nitrate Negative (NEGATIVE) 06/17/17 03:45 Urine Bilirubin Negative (NEGATIVE) 06/17/17 03:45 Urine Urobilinogen 0.2-1.0 mg/dL (0.2-1.0) 06/17/17 03:45 Ur Leukocyte Esterase Neg Lorenzo/uL (Negative) 06/17/17 03:45 Urine RBC (Auto) 1 /hpf (0-3) 06/17/17 03:45 Urine Bacteria Rare (<OCC) 06/17/17 03:45 Salicylates < 1.0 mg/dl 06/17/17 02:45 Urine Opiates Screen Negative (NEGATIVE) 06/17/17 03:45 Urine Methadone Screen Negative (NEGATIVE) 06/17/17 03:45 Acetaminophen < 10.0 ug/ml (10.0-30.0) L 06/17/17 02:45 Ur Barbiturates Screen Negative (NEGATIVE) 06/17/17 03:45 Ur Phencyclidine Scrn Negative (NEGATIVE) 06/17/17 03:45 Ur Amphetamines Screen Negative (NEGATIVE) 06/17/17 03:45 U Benzodiazepines Scrn Negative (NEGATIVE) 06/17/17 03:45 U Oth Cocaine Metabols Negative (NEGATIVE) 06/17/17 03:45 U Cannabinoids Screen Negative (NEGATIVE) 06/17/17 03:45 Alcohol, Quantitative < 10 mg/dl (0-10) 06/17/17 02:45 - Hospital Course Hospital Course: 31 y/o woman w/ no pmh brought in by roommates, presented to the ED status post ingesting multiple tablets of Benadryl. Patient was admitted to ICU. Poison control and psych were consulted. Patient medically stabilized and was accepted to [facility] for involuntary psych admission; however , there were no beds available. Patient re-evaluated by psychiatry. Patient decided to accept voluntary admission for psych in [facility]. Patient feeling better but still has depression and thoughts of self harm. The patient denies headaches, chest pain, SOB, abdominal pain, nausea, vomiting, diarrhea, dysuria , or fever. The patient has been seen, examined, and deemed medically fit for discharge to psychiatry floor. Discharge Exam - Head Exam Head Exam: ATRAUMATIC, NORMAL INSPECTION, NORMOCEPHALIC - Eye Exam Eye Exam: Normal appearance - ENT Exam ENT Exam: Mucous Membranes Moist - Neck Exam Neck exam: Full Rom - Respiratory Exam Respiratory Exam: Clear to PA & Lateral. absent: Accessory Muscle Use, Decreased Breath Sounds, Rales, Rhonchi, Wheezes, Respiratory Distress - Cardiovascular Exam Cardiovascular Exam: REGULAR RHYTHM. absent: Tachycardia - GI/Abdominal Exam GI & Abdominal Exam: Normal Bowel Sounds, Soft. absent: Distended, Tenderness - Extremities Exam Extremities exam: normal inspection - Neurological Exam Neurological exam: Alert, Normal Gait, Oriented x3 - Psychiatric Exam Psychiatric exam: Depressed, Suicidal Ideation - Skin Skin Exam: Dry, Intact, Normal Color, Warm Discharge Plan - Follow Up Plan Condition: GUARDED Disposition: DISCHARGE TO PSYCH HOSPITAL Instructions: Depression, Adult (DC), Depression (DC)
== END 2017-06-24 14:07 | DRG 918 ==
LOC: H.ER 02:19 → H.ERHOLD 03:19 → H.ICU/CCU 04:53 → H.MEDSURG1 06-19 11:34
PROVIDERS: ADMIT Internal Medicine; ATTEND Internal Medicine
DX: T45.0X2A Poisoning by antiallergic and antiemetic drugs, intentional self-harm, initial encounter (principal); F32.2 Major depressive disorder, single episode, severe without psychotic features; R45.851 Suicidal ideations; Y92.9 Unspecified place or not applicable; Z91.5 Personal history of self-harm

== ENCOUNTER 2017-06-24 14:20 | Inpatient (IN) | payer OTHER ==
[2017-06-24 14:37] VITALS: BMI 26.1
[2017-06-24] MEDS ORDERED: Alum-Mag Hydrox-Simethicone Susp (30 mL) PO PRN (15:41)
[2017-06-24] MEDS ORDERED: DiphenhydrAMINE 50 mg/ml Inj IM PRN (15:41)
[2017-06-24] MEDS ORDERED: Magnesium Hydroxide Susp 30 ml UD PO PRN (15:41)
--- NOTE | 2017-06-24 16:05 | PCM.PSYCH ---
Initial Psychiatric Evaluation - Initial Psychiatric Evaluation Type of Admission: Voluntary Legal Status: Capacity Chief Complaint (in patient's own words): I could not see a way out of my problems Patient's Reaction to Hospitalization: pt agreed to get help History of Present Illness and Precipitating Events: pt without previous formal psychiatric diagnosis or treatment, history of previous suicidal attempt by overdose in 2015 in [place] pt has been having conflict with her for a long time , also has been depressed due to being away from her children who currently resides with the father in [place], pt has recently requested divorce from her but he refused and also made her aware that she would not be able to have her children , at the same time she was having no support from her mother who was upset for the stigma of divorce in her culture on day of admission , pt had another conflict with her over the phone in reference to divorce, started feeling hopeless and helpless, pt felt there is no way out of her problems and accordingly went to [facility] , bought benadryl and overdosed on many tablets, pt was found by room mates and brought to ER PT PRESENTING WITH DEPRESSED MOOD AND AFFECT, FEELING HOPELESS AND HELPLESS WITH PSYCHOMOTOR RETARDATION reported increased sleep no changes in appetite, passive suicidal ideation feeling tired of living without active plan on the unit, no homicidal ideations , no substance use Current Medications: Active Medications Generic Name Dose Route Start Last Admin Trade Name Freq PRN Reason Stop Dose Admin Acetaminophen 650 mg 06/24/17 15:41 Tylenol 325mg Tab PO Q4 PRN Pain, moderate (4-7) Al Hydrox/Mg Hydrox/Simethicone 30 ml 06/24/17 15:41 Maalox Plus 30 Ml PO Q4 PRN Dyspepsia Diphenhydramine HCl 50 mg 06/24/17 15:41 Benadryl IM Q6 PRN Extrapyramidal S/S Unable PO Diphenhydramine HCl 50 mg 06/24/17 15:41 Benadryl PO Q6 PRN Extrapyramidal Symptoms Haloperidol 5 mg 06/24/17 15:41 Haldol PO Q4 PRN Agitation Haloperidol Lactate 5 mg 06/24/17 15:41 Haldol IM Q4 PRN Agitation, Unable to Take PO Lorazepam 2 mg 06/24/17 15:41 Ativan IM Q4 PRN Anxiety/Agitation,Unable PO Lorazepam 2 mg 06/24/17 15:41 Ativan PO Q4 PRN Anxiety/Agitation Magnesium Hydroxide 30 ml 06/24/17 15:41 Milk Of Magnesia PO HS PRN Constipation Past Psychiatric History - Past Psychiatric History Explanation of prior treatment: one suicidal attempt by overdose in 2014 History of ETOH/Drug Use: denied History of Family Illness: non reported Pertinent Medical Hx (Current Medical&Sleep Prob, Allergies): Allergies Allergy/AdvReac Type Severity Reaction Status Date / Time No Known Allergies Allergy Verified 06/17/17 02:27 No Known Home Med 06/17/17 Mental Status Examination - Personal Presentation Personal Presentation: Looks stated age - Affect Affect: Constricted, Depressed - Motor Activity Motor Activity: Psychomotor Retardation - Reliability in Providing Information Reliability in Providing Information: Fair - Speech Speech: Relevant - Mood Mood: Depressed, Anxious - Formal Thought Process Formal Thought Process: No Impairment - Hallucinations/Delusions Additional comments: pt denied perceptual disturbances, non elicited - Obsessions/Compulsions Obsessions: No Compulsions: No - Cognitive Functions Orientation: Person, Place, Situation Sensorium: Alert Attention/Concentration: Attentive - Strength & Assets Inventory Strength & Assets Inventory: Employment history - Limitations Additional comments: acculturation DSM 5 DX - DSM 5 DSM 5 Diagnosis: depression adjustment disorder with depressed mood - Recommended/Plan of Treatment Treatment Recommendations and Plan of Treatment: start lexapro 5mg daily CBT and supportive therapy
--- NOTE | 2017-06-24 16:50 | PCM.BM ---
<Duke Alexander - Last Filed: 06/24/17 16:48> Treatment Plan Problems - Problems identified on initial assessmt Hopelessness/Helplessness Date Initiated: 06/24/17 Time Initiated: 16:48 Assessment reference: NA Status: Active Treatment assets and liabiliti Patient Assests: adapts well, cooperative, educated, insightful, self-reliant, ADL independent, physically healthy, good interpersonal skills, strong donna Patient Liabilities: relationship conflicts - Milieu Protocol Maintain good personal hygiene: daily Encourage regular showers, every shift Remind patient to perform daily oral care, every shift Assist patient to perform ADL's Maintain personal safety: every shift Educate patient to report safety concerns to staff, every shift Monitor environment for contraband/sharps Medication safety: Monitor for expected outcome, potential side effects: every shift, Assess barriers to learning: every shift, Assess readiness for medication education: every shift Milieu Narrative: start lexapro 5mg daily CBT and supportive therapy Discharge/Continuing Care - Treatment Team Participation Patient/Family/SO Statement: start lexapro 5mg daily CBT and supportive therapy <Jh Loving - Last Filed: 06/27/17 08:42> - Diagnosis (1) Depression Status: Acute Interventions: psychotherapy, pharmacotherapy 06/27/17 08:41
--- NOTE | 2017-06-25 08:22 | CP.PCM.CON ---
<Romeo Hines - Last Filed: 06/25/17 08:20> History of Present Illness - History of Present Illness History of Present Illness: HPI: 31 y/o woman w/ no pmh admitted to psychiatry for depression and suicidal ideation. Patient was discharged from [facility] after medical stabilization for ingesting multiple tablets of Benadryl (25mg). Patient has past history of attempt of OD in past w/ pills in 2014. Patient did not receive treatment for previous attempt but was monitored by her who is a physician in [place]. Patient denies family history of psychiatric illness. Patient denies delusions , and auditory/visual hallucinations. The patient denies headaches, chest pain , SOB, abdominal pain, nausea, vomiting, diarrhea, dysuria, or fever. PMD: None PMH: Denies meds: none Allergies: NKDA PSH: Cesarian section X2 Fam: denies history of psychiatric illness SOC: denies smoking, alcohol, and drugs; lives with 2 room mates; and 2 children live in [place] ROS: 12 points assessed and negative unless otherwise reported in HPI patient seen and examined this morning at bedside w/ Dr. Archiabld Review of Systems - Review of Systems All systems: reviewed and no additional remarkable complaints except - Constitutional Constitutional: absent: Chills, Fever, Headache - EENT Eyes: absent: Change in Vision - Cardiovascular Cardiovascular: absent: Chest Pain - Respiratory Respiratory: absent: Dyspnea - Gastrointestinal Gastrointestinal: absent: Abdominal Pain, Diarrhea, Nausea, Vomiting - Genitourinary Genitourinary: absent: Dysuria - Integumentary Integumentary: absent: Rash Past Patient History - Past Medical History & Family History Past Medical History?: No - Past Social History Smoking Status: Unknown If Ever Smoked Chewing Tobacco Use: No - CARDIAC Hx Cardiac Disorders: No - PULMONARY Hx Respiratory Disorders: No - NEUROLOGICAL Hx Neurological Disorder: No - HEENT Hx HEENT Problems: No - RENAL Hx Chronic Kidney Disease: No - ENDOCRINE/METABOLIC Hx Endocrine Disorders: No - HEMATOLOGICAL/ONCOLOGICAL Hx Blood Disorders: No - INTEGUMENTARY Hx Dermatological Problems: No - MUSCULOSKELETAL/RHEUMATOLOGICAL Hx Musculoskeletal Disorders: No - GASTROINTESTINAL Hx Gastrointestinal Disorders: No - GENITOURINARY/GYNECOLOGICAL Hx Genitourinary Disorders: No - PSYCHIATRIC Hx Physical Abuse: No Hx Sexual Abuse: No Hx Substance Use: No - SURGICAL HISTORY Hx Surgeries: Yes Hx Section: Yes (X2) - ANESTHESIA Hx Anesthesia: Yes Hx Anesthesia Reactions: No Meds Allergies/Adverse Reactions: Allergies Allergy/AdvReac Type Severity Reaction Status Date / Time No Known Allergies Allergy Verified 06/17/17 02:27 - Medications Medications: Current Medications Acetaminophen (Tylenol 325mg Tab) 650 mg PO Q4 PRN PRN Reason: Pain, moderate (4-7) Al Hydrox/Mg Hydrox/Simethicone (Maalox Plus 30 Ml) 30 ml PO Q4 PRN PRN Reason: Dyspepsia Diphenhydramine HCl (Benadryl) 50 mg IM Q6 PRN PRN Reason: Extrapyramidal S/S Unable PO Diphenhydramine HCl (Benadryl) 50 mg PO Q6 PRN PRN Reason: Extrapyramidal Symptoms Escitalopram Oxalate (Lexapro) 5 mg PO DAILY JOSEPH Last Admin: 06/24/17 17:23 Dose: 5 mg Haloperidol (Haldol) 5 mg PO Q4 PRN PRN Reason: Agitation Haloperidol Lactate (Haldol) 5 mg IM Q4 PRN PRN Reason: Agitation, Unable to Take PO Lorazepam (Ativan) 2 mg IM Q4 PRN PRN Reason: Anxiety/Agitation,Unable PO Lorazepam (Ativan) 2 mg PO Q4 PRN PRN Reason: Anxiety/Agitation Magnesium Hydroxide (Milk Of Magnesia) 30 ml PO HS PRN PRN Reason: Constipation Physical Exam - Constitutional Appears: Non-toxic, No Acute Distress - Head Exam Head Exam: ATRAUMATIC, NORMAL INSPECTION, NORMOCEPHALIC - Eye Exam Eye Exam: Normal appearance - ENT Exam ENT Exam: Mucous Membranes Moist - Neck Exam Neck exam: Positive for: Full Rom. Negative for: Tenderness - Respiratory Exam Respiratory Exam: Clear to Auscultation Bilateral. absent: Accessory Muscle Use , Decreased Breath Sounds, Rales, Rhonchi, Wheezes, Respiratory Distress - Cardiovascular Exam Cardiovascular Exam: REGULAR RHYTHM. absent: Tachycardia - GI/Abdominal Exam GI & Abdominal Exam: Normal Bowel Sounds, Soft. absent: Distended, Tenderness - Extremities Exam Extremities exam: Negative for: calf tenderness, pedal edema, tenderness - Neurological Exam Neurological exam: Alert, Normal Gait, Oriented x3 - Psychiatric Exam Psychiatric exam: Depressed - Skin Skin Exam: Dry, Intact, Normal Color, Warm Results - Vital Signs Recent Vital Signs: Last Vital Signs Temp Pulse Resp 20 06/24/17 15:34 BP Pulse Ox Assessment & Plan (1) Depression Status: Acute (2) Suicidal ideation Status: Acute - Assessment and Plan (Free Text) Plan: c/w present management as per psychiatry afebrile, non-tachycardic, normotensive monitor for acute changes <Sandip Archibald K - Last Filed: 06/25/17 13:46> Meds - Medications Medications: Current Medications Acetaminophen (Tylenol 325mg Tab) 650 mg PO Q4 PRN PRN Reason: Pain, moderate (4-7) Al Hydrox/Mg Hydrox/Simethicone (Maalox Plus 30 Ml) 30 ml PO Q4 PRN PRN Reason: Dyspepsia Diphenhydramine HCl (Benadryl) 50 mg IM Q6 PRN PRN Reason: Extrapyramidal S/S Unable PO Diphenhydramine HCl (Benadryl) 50 mg PO Q6 PRN PRN Reason: Extrapyramidal Symptoms Escitalopram Oxalate (Lexapro) 10 mg PO DAILY JOSEPH Haloperidol (Haldol) 5 mg PO Q4 PRN PRN Reason: Agitation Haloperidol Lactate (Haldol) 5 mg IM Q4 PRN PRN Reason: Agitation, Unable to Take PO Lorazepam (Ativan) 2 mg IM Q4 PRN PRN Reason: Anxiety/Agitation,Unable PO Lorazepam (Ativan) 2 mg PO Q4 PRN PRN Reason: Anxiety/Agitation Magnesium Hydroxide (Milk Of Magnesia) 30 ml PO HS PRN PRN Reason: Constipation Results - Vital Signs Recent Vital Signs: Last Vital Signs Temp 98.2 F 06/25/17 12:20 Pulse 74 06/25/17 12:20 Resp 18 06/25/17 12:20 BP 120/70 06/25/17 12:20 Pulse Ox - Labs Labs: Laboratory Results - last 24 hr 06/25/17 08:15 Triglycerides 105 Cholesterol 171 LDL Cholesterol Direct 116 HDL Cholesterol 32 Thyroxine (T4) 11.0 TSH 3rd Generation 0.59 Assessment & Plan - Assessment and Plan (Free Text) Assessment: Patient was personally seen and examined by me in rounds with residents. Available labs and diagnostic data reviewed. Case, Patient's condition and management plan discussed with residents in rounds. Agree with resident's progress note. Plan: As ordered.
--- NOTE | 2017-06-25 14:44 | PCM.PYCHPN ---
Psychiatric Progress Note - Psychiatric Progress Note Patient seen today, length of contact: pt evaluated discussed with team chart reviewed Patient Chief Complaint: I just want to go to work and move along in life Problems Identified/Issues Discussed: pt evaluated with treatment team, pt continues to be guarded and evasive,speech under productive and needs a lot of encouragement to discuss the events that lead to her suicidal attempt , isolative in her room , not interacting with staff or other patients, presenting with depressed, dysphoric and constricted affect discussed with pt importance of thinking about the events that lead to her suicidal attempts and importance of developing new coping skills with the stressors she is going through, CBT provided and discussed with pt importance of therapy and compliance with medications on discharge, lexapro will be increased to 10mg pt continues to have very limited insight into her illness,requesting discharge Medical Problems: one suicidal attempt by overdose in 2014 DSM 5 Symptoms Update: major depression recurrent severe with psychotic features Medication Change: Yes (increase lexapro to 10mg daily) Medical Record Reviewed: Yes Mental Status Examination - Cognitive Function Orientation: Person, Place, Situation Memory: Intact Attention: WNL Concentration: Poor Association: WNL Fund of Knowledge: WNL Decription of patient's judgement and insights: poor insight and poor impulse control - Mood Mood: Depressed, Anxious - Affect Affect: Constricted, Depressed - Speech Speech: Soft - Formal Thought Process Formal Thought Process: No Impairment - Suicidal Ideation Suicidal Ideation: No - Homicidal Ideation Homicidal Ideation: No Goal/Treatment Plan - Goal/Treatment Plan Need for Continued Stay: Severe depression anxiety, Discharge may exacerbated symptoms Progress Toward Problem(s) and Goals/Treatment Plan: increase lexapro 10mg daily CBT and supportive therapy
--- NOTE | 2017-06-26 08:20 | CP.PCM.PN ---
<Romeo Hines - Last Filed: 06/26/17 08:53> Subjective - Date & Time of Evaluation Date of Evaluation: 06/26/17 Time of Evaluation: 08:05 - Subjective Subjective: Patient seen and examined this morning at bedside w/ Dr. Archibald. There are no acute events overnight, NAD. Patient reports improvement w/ mood. Patient denies headaches, chest pain, SOB, abdominal pain, nausea, vomiting, diarrhea, dysuria, or fever. Objective - Vital Signs/Intake and Output Vital Signs (last 24 hours): Temp Pulse Resp BP Pulse Ox 98.0 F 78 18 103/66 06/25/17 16:35 06/25/17 16:35 06/25/17 16:35 06/25/17 16:35 - Medications Medications: Current Medications Acetaminophen (Tylenol 325mg Tab) 650 mg PO Q4 PRN PRN Reason: Pain, moderate (4-7) Al Hydrox/Mg Hydrox/Simethicone (Maalox Plus 30 Ml) 30 ml PO Q4 PRN PRN Reason: Dyspepsia Diphenhydramine HCl (Benadryl) 50 mg IM Q6 PRN PRN Reason: Extrapyramidal S/S Unable PO Diphenhydramine HCl (Benadryl) 50 mg PO Q6 PRN PRN Reason: Extrapyramidal Symptoms Escitalopram Oxalate (Lexapro) 10 mg PO DAILY JOSEPH Haloperidol (Haldol) 5 mg PO Q4 PRN PRN Reason: Agitation Haloperidol Lactate (Haldol) 5 mg IM Q4 PRN PRN Reason: Agitation, Unable to Take PO Lorazepam (Ativan) 2 mg IM Q4 PRN PRN Reason: Anxiety/Agitation,Unable PO Lorazepam (Ativan) 2 mg PO Q4 PRN PRN Reason: Anxiety/Agitation Magnesium Hydroxide (Milk Of Magnesia) 30 ml PO HS PRN PRN Reason: Constipation - Constitutional Appears: Non-toxic, No Acute Distress - Head Exam Head Exam: ATRAUMATIC, NORMAL INSPECTION, NORMOCEPHALIC - Eye Exam Eye Exam: Normal appearance - ENT Exam ENT Exam: Mucous Membranes Moist - Neck Exam Neck Exam: Full ROM. absent: Tenderness - Respiratory Exam Respiratory Exam: Clear to Ausculation Bilateral. absent: Accessory Muscle Use , Decreased Breath Sounds, Rales, Rhonchi, Wheezes, Respiratory Distress - Cardiovascular Exam Cardiovascular Exam: REGULAR RHYTHM. absent: Tachycardia - GI/Abdominal Exam GI & Abdominal Exam: Soft, Normal Bowel Sounds. absent: Distended, Tenderness - Extremities Exam Extremities Exam: absent: Calf Tenderness, Pedal Edema, Tenderness - Neurological Exam Neurological Exam: Alert, Awake, Normal Gait, Oriented x3 - Skin Skin Exam: Dry, Intact, Normal Color, Warm Assessment and Plan (1) Depression Status: Acute (2) Suicidal ideation Status: Acute - Assessment and Plan (Free Text) Plan: c/w present management as per psychiatry afebrile, non-tachycardic, normotensive monitor for acute changes <Archibald,Sandip K - Last Filed: 06/26/17 18:23> Objective - Vital Signs/Intake and Output Vital Signs (last 24 hours): Temp Pulse Resp BP Pulse Ox 97.5 F L 73 18 125/73 06/26/17 17:00 06/26/17 17:00 06/26/17 17:00 06/26/17 17:00 - Medications Medications: Current Medications Acetaminophen (Tylenol 325mg Tab) 650 mg PO Q4 PRN PRN Reason: Pain, moderate (4-7) Al Hydrox/Mg Hydrox/Simethicone (Maalox Plus 30 Ml) 30 ml PO Q4 PRN PRN Reason: Dyspepsia Diphenhydramine HCl (Benadryl) 50 mg IM Q6 PRN PRN Reason: Extrapyramidal S/S Unable PO Diphenhydramine HCl (Benadryl) 50 mg PO Q6 PRN PRN Reason: Extrapyramidal Symptoms Escitalopram Oxalate (Lexapro) 10 mg PO DAILY JOSEPH Last Admin: 06/26/17 08:42 Dose: 10 mg Haloperidol (Haldol) 5 mg PO Q4 PRN PRN Reason: Agitation Haloperidol Lactate (Haldol) 5 mg IM Q4 PRN PRN Reason: Agitation, Unable to Take PO Lorazepam (Ativan) 2 mg IM Q4 PRN PRN Reason: Anxiety/Agitation,Unable PO Lorazepam (Ativan) 2 mg PO Q4 PRN PRN Reason: Anxiety/Agitation Magnesium Hydroxide (Milk Of Magnesia) 30 ml PO HS PRN PRN Reason: Constipation Assessment and Plan - Assessment and Plan (Free Text) Assessment: Patient was personally seen and examined by me in rounds with residents. Available labs and diagnostic data reviewed. Case, Patient's condition and management plan discussed with residents in rounds. Agree with resident's progress note. Plan: As ordered.
[2017-06-26 17:54] VITALS: PULSE 73; RESP 18
--- NOTE | 2017-06-26 18:11 | PCM.PYCHPN ---
Psychiatric Progress Note - Psychiatric Progress Note Patient seen today, length of contact: pt evaluated discussed with team chart reviewed Patient Chief Complaint: I am better today Problems Identified/Issues Discussed: pt evaluated , less guarded , more interactive with staff and other patients she was able to verbalize possible coping skills with stress rather than acting out on suicidal ideations,stating she would rely on a close friend, music and spirituality, discussed with pt importance of therapy and medication compliance on discharge ,no rpoetd side effects with the increase in lexapro, pt denied any current suicidal or homicidal ideations, showing some insight into illness Medical Problems: one suicidal attempt by overdose in 2014 DSM 5 Symptoms Update: major depression recurrent severe Medication Change: No Medical Record Reviewed: Yes Mental Status Examination - Cognitive Function Orientation: Person, Place, Situation Memory: Intact Attention: WNL Concentration: WNL Association: WNL Fund of Knowledge: WNL Decription of patient's judgement and insights: poor insight and poor impulse control - Mood Mood: Depressed, Anxious - Affect Affect: Constricted, Depressed - Speech Speech: Soft - Formal Thought Process Formal Thought Process: No Impairment Psychotic Thoughts and Behaviors: pt denied psychotic symptoms, non elicited - Suicidal Ideation Suicidal Ideation: No - Homicidal Ideation Homicidal Ideation: No Goal/Treatment Plan - Goal/Treatment Plan Need for Continued Stay: Severe depression anxiety, Discharge may exacerbated symptoms Progress Toward Problem(s) and Goals/Treatment Plan: lexapro 10mg daily CBT and supportive therapy
--- NOTE | 2017-06-27 08:08 | CP.PCM.PN ---
<Romeo Hines - Last Filed: 06/27/17 09:32> Subjective - Date & Time of Evaluation Date of Evaluation: 06/27/17 Time of Evaluation: 09:32 - Subjective Subjective: Patient seen and examined this morning at bedside w/ Dr. Archibald. There are no acute events overnight, NAD. Patient reports improvement w/ mood. Patient denies headaches, chest pain, SOB, abdominal pain, nausea, vomiting, diarrhea, dysuria, or fever. Objective - Vital Signs/Intake and Output Vital Signs (last 24 hours): Temp Pulse Resp BP Pulse Ox 97.5 F L 73 18 125/73 06/26/17 17:00 06/26/17 17:00 06/26/17 17:00 06/26/17 17:00 - Medications Medications: Current Medications Acetaminophen (Tylenol 325mg Tab) 650 mg PO Q4 PRN PRN Reason: Pain, moderate (4-7) Al Hydrox/Mg Hydrox/Simethicone (Maalox Plus 30 Ml) 30 ml PO Q4 PRN PRN Reason: Dyspepsia Diphenhydramine HCl (Benadryl) 50 mg IM Q6 PRN PRN Reason: Extrapyramidal S/S Unable PO Diphenhydramine HCl (Benadryl) 50 mg PO Q6 PRN PRN Reason: Extrapyramidal Symptoms Escitalopram Oxalate (Lexapro) 10 mg PO DAILY JOSEPH Last Admin: 06/26/17 08:42 Dose: 10 mg Haloperidol (Haldol) 5 mg PO Q4 PRN PRN Reason: Agitation Haloperidol Lactate (Haldol) 5 mg IM Q4 PRN PRN Reason: Agitation, Unable to Take PO Lorazepam (Ativan) 2 mg IM Q4 PRN PRN Reason: Anxiety/Agitation,Unable PO Lorazepam (Ativan) 2 mg PO Q4 PRN PRN Reason: Anxiety/Agitation Magnesium Hydroxide (Milk Of Magnesia) 30 ml PO HS PRN PRN Reason: Constipation - Constitutional Appears: Non-toxic, No Acute Distress - Head Exam Head Exam: ATRAUMATIC, NORMAL INSPECTION, NORMOCEPHALIC - Eye Exam Eye Exam: Normal appearance - ENT Exam ENT Exam: Mucous Membranes Moist - Neck Exam Neck Exam: Full ROM. absent: Tenderness - Respiratory Exam Respiratory Exam: Clear to Ausculation Bilateral. absent: Accessory Muscle Use , Decreased Breath Sounds, Rales, Rhonchi, Wheezes, Respiratory Distress - Cardiovascular Exam Cardiovascular Exam: REGULAR RHYTHM. absent: Tachycardia - GI/Abdominal Exam GI & Abdominal Exam: Soft, Normal Bowel Sounds. absent: Distended, Tenderness - Extremities Exam Extremities Exam: absent: Calf Tenderness, Pedal Edema, Tenderness - Neurological Exam Neurological Exam: Alert, Awake, Normal Gait, Oriented x3 - Skin Skin Exam: Dry, Intact, Normal Color, Warm Assessment and Plan (1) Depression Status: Acute (2) Suicidal ideation Status: Acute - Assessment and Plan (Free Text) Plan: c/w present management as per psychiatry afebrile, non-tachycardic, normotensive monitor for acute changes <Archibald,Sandip K - Last Filed: 06/28/17 18:55> Objective - Vital Signs/Intake and Output Vital Signs (last 24 hours): Temp Pulse Resp BP Pulse Ox 98.4 F 73 18 113/70 06/27/17 09:00 06/27/17 09:00 06/27/17 09:00 06/27/17 09:00 Assessment and Plan - Assessment and Plan (Free Text) Assessment: Patient was personally seen and examined by me in rounds with residents. Available labs and diagnostic data reviewed. Case, Patient's condition and management plan discussed with residents in rounds. Agree with resident's progress note. Plan: As ordered.
[2017-06-27 09:14] VITALS: BP 113/70; TEMP 98.4
--- NOTE | 2017-06-27 13:55 | PCM.PYCHDC ---
Mental Status Examination - Mental Status Examination Orientation: Person, Place, Situation Memory: Intact Mood: Neutral Affect: Broad Speech: Appropriate Attention: WNL Concentration: WNL Association: WNL Fund of Knowledge: WNL Formal Thought Process: No Impairment Description of patient's judgement and insight: partial insight and fair judgment Psychotic Thoughts and Behaviors: pt denied psychotic symptoms, non elicited Suicidal Ideation: No Current Homicidal Ideation?: No Discharge Summary - Discharge Note Reason for Hospitalization: pt agreed to get help pt without previous formal psychiatric diagnosis or treatment, history of previous suicidal attempt by overdose in 2015 in [place] pt has been having conflict with her for a long time , also has been depressed due to being away from her children who currently resides with the father in [place], pt has recently requested divorce from her but he refused and also made her aware that she would not be able to have her children , at the same time she was having no support from her mother who was upset for the stigma of divorce in her culture on day of admission , pt had another conflict with her over the phone in reference to divorce, started feeling hopeless and helpless, pt felt there is no way out of her problems and accordingly went to [facility] , bought benadryl and overdosed on many tablets, pt was found by room mates and brought to ER PT PRESENTING WITH DEPRESSED MOOD AND AFFECT, FEELING HOPELESS AND HELPLESS WITH PSYCHOMOTOR RETARDATION reported increased sleep no changes in appetite, passive suicidal ideation feeling tired of living without active plan on the unit, no homicidal ideations , no substance use Consultations:: List each consultation separately and include: 1. Reason for request. 2. Findings. 3. Follow-up Summary of Hospital Course include:: 1. Description of specific treatment plan utilized for patients during their course of treatmen. 2. Summarize the time- course for resolution of acute symptoms and/or regressed behaviors. 3. Describe issues identified and worked on during hospitalization. 4. Describe medication utilized. 5. Describe medical problems identified and treated. 6. Reassessment of suicide risk Summary of Hospital Course: pt on admission was started on lexapro 5mg, it was gradually uptitrated to 10mg CBT, and supportive therapy was provided pt gradualy became less isolative, less guarded, was able to verbalize possible coping skills with stress rathe than acting out pt on discharge mental status was stable denied ay current suicidal or homicidal ideations, denied perceptual disturbances, no reported side effects of medications - Diagnosis (1) Depression Status: Acute - Final Diagnosis (DSM 5) Condition upon Discharge: GOOD Disposition: HOME/ ROUTINE Follow-up Treatment Plan: lexapro 10mg daily CBT and supportive therapy Prescriptions/Medication Reconciliation: Escitalopram [Lexapro] 10 mg PO DAILY 30 Days #30 tab - Antipsychotic Medications Pt discharged on 2 or more routine antipsychotic medications: No
== END 2017-06-27 12:11 | disposition home or self-care (01) | DRG 885 ==
LOC: H.ERHOLD 14:37 → H.PSYCH 15:28
PROVIDERS: ADMIT Psychiatry & Neurology Psychiatry; ATTEND Psychiatry & Neurology Psychiatry
PROC: GZHZZZZ Group Psychotherapy (ICD-10-PCS; principal; 2017-06-24)
PROC: GZ58ZZZ Individual Psychotherapy, Cognitive-Behavioral (ICD-10-PCS; 2017-06-24)
DX: F33.3 Major depressive disorder, recurrent, severe with psychotic symptoms (principal); R45.851 Suicidal ideations; F43.21 Adjustment disorder with depressed mood; Z91.5 Personal history of self-harm